=== PATIENT | female | born 2000 | race African-American/Black ===

== ENCOUNTER 2021-03-22 01:23 | Emergency (ER) | payer MEDICAID ==
[~2021-03-22] VITALS: Ht 170.2 cm; Wt 91.0 kg
[2021-03-22 01:27] VITALS: BP 129/70
[2021-03-22] MEDS ORDERED: BO1 TP (02:28)
[2021-03-22] MEDS ORDERED: T3 PO (05:40)
[2021-03-22] MEDS ORDERED: IBUP-2028 PO (05:42)
== END 2021-03-22 03:06 | disposition home or self-care (01) ==
LOC: EDBD → ER 01:23
DX: S81.811A Laceration without foreign body, right lower leg, initial encounter (principal); Z59.00 Homelessness unspecified; X58.XXXA Exposure to other specified factors, initial encounter; Y93.89 Activity, other specified; Y92.89 Other specified places as the place of occurrence of the external cause
CPT/HCPCS: 12002; 99283; Z7610

== ENCOUNTER 2021-03-22 05:10 | Emergency (ER) | payer MEDICAID ==
[~2021-03-22] VITALS: Ht 170.2 cm; Wt 97.0 kg
[~2021-03-22 05:10] MED LIST: BO1 TP
[2021-03-22 05:19] VITALS: BP 127/100
[2021-03-22] MEDS ORDERED: T3 PO (05:40)
[2021-03-22] MEDS ORDERED: IBUP-2028 PO (05:42)
[2021-03-22] MEDS ORDERED: IBUPROFEN 400MG TABLET PO ONE (06:00)
== END 2021-03-22 06:17 | disposition home or self-care (01) ==
LOC: ER 05:10
DX: M79.651 Pain in right thigh (principal)
CPT/HCPCS: 99282

== ENCOUNTER 2021-03-25 22:49 | Emergency (ER) | payer MEDICAID ==
[~2021-03-25] VITALS: Ht 170.2 cm; Wt 88.0 kg
[~2021-03-25 22:49] MED LIST changes: +IBUP-2028 PO; +T3 PO
[2021-03-25 22:53] VITALS: BP 100/59
== END 2021-03-26 05:00 | disposition left against medical advice (07) ==
LOC: ER 22:49
DX: M25.551 Pain in right hip (principal)
CPT/HCPCS: 99283